=== PATIENT | male | born 1980 | race African-American/Black ===

== ENCOUNTER 2016-03-23 15:32 | Emergency (ER) | payer BC ==
[~2016-03-23] VITALS: Ht 172.7 cm; Wt 74.8 kg
[~2016-03-23 15:32] MED LIST: AMOXICILLIN 50500 M1 PO; APAP/CODEINE ELI5 M1 OR; AUGMENTIN 875-1 EACH PO; AUGMENTIN 875875 MG PO; IBUPROFEN; IBUPROFEN 200200 M1 PO; IBUPROFEN 600600 M1 PO; NORCO 5-325 TA1 EACH PO; PROTONIX40 MG PO; VISTARIL 25 MG25 M1 PO
[2016-03-23 16:05] LABS: URINE BILIRUBIN NEGATIVE (Negative); URINE BLOOD NEGATIVE (Negative); URINE COLOR YELLOW; URINE GLUCOSE-RANDOM* NEGATIVE (Negative); URINE KETONES NEGATIVE (Negative); URINE LEUKOCYTES-REFLEX NEGATIVE (Negative); URINE PROTEIN (DIPSTICK) NEGATIVE (Negative); URINE SPECIFIC GRAVITY >= 1.030 (1.003-1.035); URINE UROBILINOGEN 0.2 E.U./dl (0.2-1.0)
[2016-03-23] MEDS ORDERED: AMOXICILLIN 50500 MG PO (16:14)
[2016-03-23] MEDS ORDERED: BACTRIM DS TAB1 EACH PO (16:14)
[2016-03-23 16:18] LABS: BASOPHILS 1.1 % (0.0-2.0); HEMATOCRIT 43.8 % (42.0-52.0); LYMPHOCYTES 29.4 % (24.0-44.0); MCH 29.6 pg (26.0-34.0); MCHC 34.3 % (28.0-37.0); MCV 86.2 fL (80.0-100.0); MONOCYTES 9.7 % (1.0-8.0); PLATELET COUNT 156 thou/uL (150-400); POLYS 44.8 % (36.0-66.0); RBC 5.08 mil/uL (4.50-6.00); RDW 13.5 % (10.5-14.5); WBC 6.7 thou/uL (4.0-11.0)
[2016-03-23 16:29] LABS: MANUAL DIFF NO
[2016-03-23 16:41] LABS: CALCIUM 9.2 mg/dL (8.5-10.1); CREATININE 1.3 mg/dL (0.6-1.3); POTASSIUM 4.3 mmol/L (3.5-5.1)
[2016-03-23 16:48] LABS: ALBUMIN 3.9 g/dL (3.4-5.0); TOTAL BILIRUBIN 0.2 mg/dL (<0.1-1.0); TOTAL PROTEIN 7.7 g/dL (6.4-8.2)
[2016-03-23] MEDS ORDERED: MIRALAX255 GM PO (18:18)
[2016-03-23] MEDS ORDERED: CITRATE OF MAG296 ML PO (18:18)
[2016-03-23] MEDS ORDERED: PHENERGAN 25 MG25 M1 PO (18:19)
[2016-03-23 18:51] VITALS: BP 107/69
== END 2016-03-23 18:52 | disposition home or self-care (01) ==
LOC: ER 15:32
PROVIDERS: Physician Assistant
DX: K59.00 Constipation, unspecified (principal); R11.2 Nausea with vomiting, unspecified; R10.30 Lower abdominal pain, unspecified; F17.210 Nicotine dependence, cigarettes, uncomplicated

== ENCOUNTER 2018-07-09 00:12 | Emergency (ER) | payer OTHER ==
[~2018-07-09] VITALS: Ht 172.7 cm; Wt 72.6 kg
[~2018-07-09 00:12] MED LIST changes: +AMOXICILLIN 50500 MG PO; +BACTRIM DS TAB1 EACH PO; +CITRATE OF MAG296 ML PO; +MIRALAX255 GM PO; +PHENERGAN 25 MG25 M1 PO
[2018-07-09] MEDS ORDERED: COMPAZINE10 MG PO (02:58)
[2018-07-09 03:10] VITALS: BP 132/71
== END 2018-07-09 03:10 | disposition home or self-care (01) ==
LOC: ER 00:12
DX: R51 Headache (principal); F17.210 Nicotine dependence, cigarettes, uncomplicated

== ENCOUNTER 2018-08-22 06:34 | Emergency (ER) | payer OTHER ==
[~2018-08-22] VITALS: Ht 170.2 cm; Wt 72.6 kg
[~2018-08-22 06:34] MED LIST changes: +COMPAZINE10 MG PO
[2018-08-22 06:40] VITALS: BP 124/92
== END 2018-08-22 07:41 | disposition home or self-care (01) ==
LOC: ER 06:34
DX: S40.012A Contusion of left shoulder, initial encounter (principal); S93.402A Sprain of unspecified ligament of left ankle, initial encounter; Y04.2XXA Assault by strike against or bumped into by another person, initial encounter; Y93.89 Activity, other specified; Y92.89 Other specified places as the place of occurrence of the external cause; Y99.8 Other external cause status